=== PATIENT | female | born 1955 | race Caucasian/White ===

== ENCOUNTER 2016-06-28 13:40 | Emergency (ER) | payer OTHER ==
[~2016-06-28] VITALS: Ht 162.6 cm; Wt 76.4 kg
[~2016-06-28 13:40] MED LIST: ALLEGRA ALLERG180 MG PO; ANTIVERT25 MG PO; CALCIUM + VITA1 EACH PO; CRESTOR10 MG PO; FLONASE16 G1 BOTH NARES; RAMIPRIL5 MG PO; SKELAXIN400 M1 PO; VITAMIN D2000 INTUN PO
[2016-06-28 14:19] LABS: ADD MIUA? NO; BILIRUBIN NEGATIVE; BLOOD NEGATIVE; GLUCOSE (STRIP) NEGATIVE; KETONES NEGATIVE; LEUKOCYTES NEGATIVE; NITRITE NEGATIVE; PH, URINE 7.5 (5-8); PROTEIN (STRIP) NEGATIVE; SPECIFIC GRAVITY 1.014 (1.000-1.030); UCUL ADDED? NO; UROBILINOGEN 0.2 MG/DL (0.2-1.0)
[2016-06-28 14:20] LABS: COLOR LT YELLOW ((YELLOW))
[2016-06-28 15:26] LABS: HEMATOCRIT 42.8 % (36.0-46.0); MCH 28.7 PG (29.0-34.0); MCHC 34.8 G/DL (30.0-36.0); MCV 82.3 FL (83-99); MEAN PLAT.VOLUME 10.9 uM^3 (9.5-12.4); PLATELET COUNT 190 K/uL (156-360); RBC DIS.WIDTH-CV 12.7 % (11.8-14.6); RBC DIS.WIDTH-SD 37.7 % (39-53); WHITE BLOOD COUNT 6.4 K/uL (4.1-10.2)
[2016-06-28 15:35] LABS: CHLORIDE 105 mEq/L (99-109); POTASSIUM 3.8 mEq/L (3.7-5.4); SODIUM 140 mEq/L (136-147)
[2016-06-28 15:38] LABS: GLUCOSE 91 mg/dL (70-99)
[2016-06-28 15:39] LABS: ANION GAP 12 MEQ/L (2-14)
[2016-06-28 15:40] LABS: TOTAL BILIRUBIN 0.9 mg/dL (0.0-1.0)
[2016-06-28 15:41] LABS: ALKALINE PHOSPHATASE 107 IU/L (3-129); GFR ESTIMATE (CALCULATED) > 59 mL/min/
[2016-06-28 15:42] LABS: UREA NITROGEN (BUN) 15 mg/dL (9-23)
[2016-06-28 15:45] LABS: LIPASE 34 U/L (1.0-51.0)
[2016-06-28] MEDS ORDERED: BENTYL20 MG PO (18:20)
[2016-06-28 18:27] VITALS: BP 185/83
== END 2016-06-28 18:28 | disposition home or self-care (01) ==
LOC: EME 13:40
DX: R10.13 Epigastric pain (principal); I10 Essential (primary) hypertension; K21.9 Gastro-esophageal reflux disease without esophagitis; E78.5 Hyperlipidemia, unspecified; J30.2 Other seasonal allergic rhinitis
CPT/HCPCS: 76705; 80053; 81003; 83690; 85027; 99281; 99284